=== PATIENT | female | born 1990 | race African-American/Black ===

== ENCOUNTER 2021-06-16 14:12 | Outpatient (CLI) | payer BC, SELFPAY ==
--- NOTE | ~2021-06-16 | US_ITS ---
EXAMINATION: US pelvic complete w TV DATE: 06/16/2021 15:37 INDICATION: Pelvic and perineal pain. Comparison:No prior studies for comparison. TECHNIQUE: Multiple transabdominal and endovaginal sonographic images of the pelvis performed. FINDINGS: The uterus measures 9.1 x 5.9 x 4.3 cm. The endometrial complex measures 11 mm. The right ovary measures 4.4 x 2.9 x 3.3 cm and the left ovary measures 2.1 x 1.6 x 2.1 cm. There is a right ovarian cyst measuring 3.7 cm. There are small follicles in each ovary. Normal doppler signal in both ovaries. There is no free fluid in the pelvis. There are no abnormal masses seen on either side. IMPRESSION: 1. Right ovarian cyst measuring 3.7 cm. Reviewed, dictated and finalized at location A. LITATION WORKER
== END 2021-06-16 14:13 | disposition home or self-care (01) ==
PROVIDERS: PCP Internal Medicine; Visit Provider Obstetrics & Gynecology
DX: R10.2 Pelvic and perineal pain (principal); N83.201 Unspecified ovarian cyst, right side
CPT/HCPCS: 76830; 76856

== ENCOUNTER 2021-08-14 10:47 | Outpatient (CLI) | payer BC, SELFPAY ==
--- NOTE | ~2021-08-14 | US_ITS ---
EXAMINATION: US pelvic complete w TV DATE: 08/14/2021 11:18 INDICATION: Unspecified ovarian cyst, unspecified site. TECHNIQUE: Multiple transabdominal and transvaginal sonographic images of the pelvis were obtained. COMPARISON: Ultrasound 06/16/2021 FINDINGS: TRANSABDOMINAL ULTRASOUND: The uterus measures 7.8 x 4.2 x 5.2 cm. There is no free fluid in the pelvis. TRANSVAGINAL ULTRASOUND: The endometrial complex measures 6 mm in thickness. The right ovary measures 2.9 x 1.6 x 1.4 cm. The left ovary measures 4.2 x 4.1 x 3.4 cm. There is a 3.6 cm cyst in left ovary. There is normal vascula r flow in the ovaries. IMPRESSION: 1. 3.6 cm cyst in left ovary, likely a follicular cyst. Reviewed, dictated and finalized at location E. L ENGINEER
== END 2021-08-14 10:48 | disposition home or self-care (01) ==
LOC: ANHIMG 10:50
PROVIDERS: PCP Internal Medicine; Visit Provider Obstetrics & Gynecology
DX: N83.202 Unspecified ovarian cyst, left side (principal)
CPT/HCPCS: 76830; 76856

== ENCOUNTER 2021-09-16 13:15 | Outpatient (RCR) | payer BC, MEDICAID, SELFPAY ==
--- NOTE | 2021-07-15 09:58 | PTOPEVAL ---
PHYSICAL THERAPY EVALUATION AND PLAN OF CARE Thank you for referring Brunilda Verduzco to [facility][Note 3].? The patient is scheduled to be seen for therapy? 1x/week for 5 weeks. Please review, sign, date and return this plan of care HAYLEY. I agree with and certify that the following plan of care is medically necessary. Referring Physician Date Attending Provider: René Becker MD Evaluation Diagnosis pelvic and perineal pain ( dysparunia) Onset chronic Subjective Information Does have pelvic floor pain Query Text:As Reported By Patient/ and pain with sex. Pain with Family sex has been occuring since she has been with her - since 18 years old. 4 term pregnancies, all vaginal deliveries. States that she does not really have leakage of urine and she does not seem to have urinary frequency. States she will usually only void during the day about 3-4 times a day. She does not get up in the night to go to the bathroom but first thing in the morning there is a lot of pain from the fullness of the bladder - despite the fullness of the bladder she feels like she has to lean forward or push out the urine because otherwise the stream is so weak. States that her doctor mentioned that her bladder is lower than normal. States that her doctor did some palpatory testing and there was areas of pelvic floor weakness and some areas of tenderness. perineal pain with sex: states that it has significantly worsened with time. Does note that she started working out again and there has been a decrease in the pain with sex. States that during her period and while ovulating she has severe pain (not burning) and that when she is ovulating
--- NOTE | 2021-07-22 17:39 | PCPTNOTE ---
Patient called & cancelled scheduled appointment for 07/23/21 because her kids have the flu.
--- NOTE | 2021-07-29 16:41 | PCPTNOTE ---
Patient did not show up for scheduled appointment this date.
--- NOTE | 2021-08-06 15:54 | PCPTNOTE ---
Patient called at 3:12 to state that she has not left her house yet and it would be at least another 20minutes before she was able to arrive; therefore, cancelled the appt.
--- NOTE | 2021-08-14 08:30 | PTOPEVAL ---
PHYSICAL THERAPY PROGRESS REPORT Thank you for referring Brunilda Verduzco to [facility].? The patient will follow up in 2 weeks and we will continue. Please review, sign, date and return this plan of care HAYLEY. I agree with and certify that the following plan of care is medically necessary. 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 She has been working on her [employer] and feels like she is doing well with that. She does still feel like she has to push the urine out or she will be sitting there all day. We discussed taking the opportunity to slow down and allow herself to relax while on the toilet and allow the pelvic floor to relax to allow the urine to flow well. We discussed that the flow of urine should be a good stream but easy and not like a waterfall. Self Report Self Report Pain Level 0 Pain Score Pain Score 0: Self Report Lower Extremity Muscle Strength Testing Hip Strength Left Hip Flexion Strength 5 Normal Hip Extension Strength 4 Good Hip Abduction Strength 4 Good Hip Medial Rotation Strength 4 Good Hip Lateral Rotation Strength 4 Good Right Hip Flexion Strength 5 Normal Hip Extension Strength 4+ Good + Hip Abduction Strength 4+ Good + Hip Medial Rotation Strength 4 Good Hip Lateral Rotation Strength 4 Good Pelvic Health Therapy Pelvic Health Exercise Relaxation Technique meditation techniques to relax pelvic floor prior to initiating urination to prevent need to push the urine out. also prior to intercourse in order to decrease tension held in pelvic floor Biofeedback Use discussed the concept of biofeedback and how it can assist in red
--- NOTE | 2021-10-13 16:42 | PCPTNOTE ---
This treatment is being continued on visit number [id number]. Please see documentation on both accounts to view progress. Completed interventions, outcomes, and problems have been marked as Inactive to facilitate the copying of the Care plan routine for recurring accounts.
== END 2021-10-13 11:24 | disposition home or self-care (01) ==
LOC: ANHPT 13:15
PROVIDERS: PCP Internal Medicine; Visit Provider Obstetrics & Gynecology
DX: R10.2 Pelvic and perineal pain (principal)
CPT/HCPCS: 97110; 97112; 97140; 97162; 97530

== ENCOUNTER 2021-09-23 11:19 | Outpatient (CLI) | payer BC, SELFPAY ==
--- NOTE | ~2021-09-23 | XR_ITS ---
EXAMINATION: XR chest 2V DATE: 09/23/2021 11:56 INDICATION: Chest pain TECHNIQUE: PA and lateral views of the chest are obtained. COMPARISON: None available FINDINGS: The lungs are free of acute opacities. There is no pleural effusion or pneumothorax. The ca rdiomediastinal silhouette is normal. The visualized bones and soft tissues are unremarkable. IMPRESSION: 1. No acute cardiopulmonary abnormality. Reviewed, dictated and finalized at location B.
--- NOTE | ~2021-09-23 | US_ITS ---
US abdomen complete EXAMINATION: US Abdomen Complete INDICATION: Hepatitis. PROCEDURE: Realtime High Resolution abdomen ultrasound. COMPARISON: No prior studies for comparison FINDINGS: Gallbladder within normal limits. No gallstones, pericholecystic fluid, gallbladder wall t hickening or biliary dilatation. Common bile duct measures 5 mm. Liver echotexture within normal limits without focal mass. Pancreas within normal limits. Pancreati c tail is obscured by bowel gas. Spleen is unremarkeable. Renal echotexture is within normal limits bilaterally without hydronephrosis, contour deforming mass or renal stone. Right kidney measures 9.5 cm. Left kidney measures 9.4 cm. Visualized aspects of the aorta and IVC are within normal limits. Portal vein is patent. No sonograph ic Pino's sign indicated by the technologist. IMPRESSION: 1: Normal abdominal ultrasound. Reviewed, dictated and finalized at location A.
--- NOTE | ~2021-09-23 | CT_ITS ---
EXAMINATION: CT abdomen pelvis w con EXAM DATE: 09/23/2021 14:54 INDICATION: Abdominal pain. TECHNIQUE: Spiral CT of the abdomen and pelvis was performed following intravenous injection of 100 m L Omnipaque 350. Axial, coronal and sagittal images of the abdomen and pelvis were reviewed. The do se-length product (DLP) for this examination was 222.77 mGy-cm. The exposure was tailored according to patient size (auto mA exposure control), and iterative reconstruction (ASIR) was used as additiona l dose reduction technique. There is no prior study for comparison. FINDINGS: The liver, spleen, adrenal glands and pancreas are unremarkable. Gallbladder is unremarkab le. No biliary obstruction. Portal and splenic veins are patent. Kidneys enhance symmetrically. T here is no hydronephrosis. The uterus is unremarkable. The bladder is unremarkable. There is no retroperitoneal or pelvic lymphadenopathy. There are no findings to suggest appendicitis. The stomach and small bowel are unremarkable. There is expected amount of colonic stool. No free intraperitoneal gas. The heart is normal in size. T here are no pericardial or pleural effusions. The lung bases are unremarkable. The bones are unrema rkable. IMPRESSION: 1. No acute intra-abdominal findings. Reviewed, dictated and finalized at location G.
[2021-09-23 12:55] LABS: Basophils Percent Auto 0.6 % (0.2-1.2); Eosinophils Absolute Auto 0.1 K/mm3 (0-0.3); Eosinophils Percent Auto 1.5 % (0-4.4); Hematocrit 38.4 % (37.0-47.0); Hemoglobin 13.3 g/dL (12.0-15.0); Immature Granulocyte Absolute 0.01 K/mm3 (0.00-0.031); Immature Granulocyte Percent A 0.2 % (0-0.5); Lymphocytes Absolute Auto 2.02 K/mm3 (0.9-3.2); Lymphocytes Percent Auto 39.1 % (18.3-44.2); Mean Corpuscular HGB Conc 34.6 g/dl (32-36); Mean Corpuscular Hemoglobin 30.9 pg (26-34); Mean Corpuscular Volume 89.1 fl (80-100); Mean Platelet Volume 9.4 fl (7.4-10.4); Monocytes Absolute Auto 0.4 K/mm3 (0.1-0.6); Monocytes Percent Auto 7.5 % (2.6-8.5); Neutrophils Absolute Auto 2.6 K/mm3 (1.3-6.7); Neutrophils Percent Auto 51.1 % (45.5-73.1); Platelet Count Result 219 k/mm3 (150-375); Red Blood Count 4.31 M/mm3 (4.2-5.4); White Blood Count 5.2 K/mm3 (4.5-10.0)
[2021-09-23 13:05] LABS: Alanine Aminotransferase 646 U/L (4-35); Albumin Level 4.6 g/dL (3.5-5.1); Alkaline Phosphatase 106 U/L (38-126); Amylase 74 U/L (30-110); Anion Gap 8 mmol/L (8-16); Aspartate Amino Transferase 357 U/L (14-36); Bilirubin,Total 0.5 mg/dL (0.2-1.3); Blood Urea Nitrogen 12 mg/dL (7-17); Calcium 9.2 mg/dL (8.4-10.2); Carbon Dioxide 22 mmol/L (22-30); Chloride 108 mmol/L (98-107); Estimated Glomerular Filt Rate > 60; Glucose 83 mg/dL (65-110); Lipase 75 U/L (23-300); Potassium 3.6 mmol/L (3.4-5.0); Sodium 138 mmol/L (137-145)
== END 2021-09-23 11:20 | disposition home or self-care (01) ==
PROVIDERS: PCP Internal Medicine; Visit Provider Internal Medicine
DX: K75.9 Inflammatory liver disease, unspecified (principal); R07.9 Chest pain, unspecified; R10.9 Unspecified abdominal pain
CPT/HCPCS: 36415; 71046; 74177; 76700; 80053; 82150; 83690; 85025; Q9967

== ENCOUNTER 2021-10-02 14:41 | Outpatient (CLI) | payer BC, SELFPAY ==
[2021-10-02 15:10] LABS: Alanine Aminotransferase 62 U/L (4-35); Albumin Level 4.6 g/dL (3.5-5.1); Alkaline Phosphatase 72 U/L (38-126); Anion Gap 10 mmol/L (8-16); Aspartate Amino Transferase 30 U/L (14-36); Bilirubin,Total 0.3 mg/dL (0.2-1.3); Blood Urea Nitrogen 13 mg/dL (7-17); Calcium 9.5 mg/dL (8.4-10.2); Carbon Dioxide 24 mmol/L (22-30); Chloride 108 mmol/L (98-107); Estimated Glomerular Filt Rate > 60; Glucose 101 mg/dL (65-110); Potassium 3.7 mmol/L (3.4-5.0); Sodium 142 mmol/L (137-145)
[2021-10-02 15:22] LABS: Troponin I < 0.012 ng/mL (0.000-0.034)
[2021-10-07 10:33] LABS: CMV IgM Antibody <30.00 AU/mL (<30.00)
[2021-10-08 15:16] LABS: EBV Nuclear Ab Interpretation Past; EBV Virus Capsid Ag IgM Ab <36.00 U/mL (<36.00)
== END 2021-10-02 14:42 | disposition home or self-care (01) ==
LOC: ANHLAB 14:44
PROVIDERS: PCP Internal Medicine; Visit Provider Internal Medicine
DX: K75.9 Inflammatory liver disease, unspecified (principal)
CPT/HCPCS: 36415; 80053; 84484; 86645; 86664; 86665

== ENCOUNTER 2021-10-17 07:19 | Outpatient (RCR) | payer BC, SELFPAY ==
--- NOTE | 2021-10-13 16:42 | PCPTNOTE ---
The treatment documented on this account is a continuation of the treatment documented on visit number [id number]. Please see documentation on both accounts to view progress. The Plan of Care has been transitioned and updated within the new V#. I have addressed and agree with the discipline specific Problems, Interventions, and Goals for the current certification period. Completed interventions, outcomes, and problems have been marked as Inactive to facilitate the copying of the Care plan routine for recurring accounts.
--- NOTE | 2021-10-14 10:46 | PCPTNOTE ---
Patient did not show up for scheduled appointment this date.
--- NOTE | 2021-10-16 15:18 | PCPTNOTE ---
PHYSICAL THERAPY DISCHARGE NOTE Attending Provider: René Becker MD Patient:Brunilda Verduzco Date of :1990 Brunilda was participating in physical therapy to address pelvic pain and difficulty voiding. She participated in treatment to address relaxation techniques and voiding strategies and healthy practices. She felt good about performing pelvic floor exercises and relaxation techniques. She has not returned for any further treatments since , therefore she will be discharged at this time. Patient?s initial visit was on 10/14/2021 and had a total of 4 visits. Thank you for referring this patient to [facility]. Please review, sign, date and return this discharge summary HAYLEY. I have been updated about the patient's current status and I agree with discharge from the above service at this time. Referring Physician Date
== END 2021-10-17 07:20 | disposition home or self-care (01) ==
LOC: ANHPT 07:19
PROVIDERS: PCP Internal Medicine; Visit Provider Obstetrics & Gynecology
DX: R10.2 Pelvic and perineal pain (principal)
CPT/HCPCS: 99199

== ENCOUNTER 2021-11-11 16:43 | Outpatient (CLI) | payer BC, SELFPAY ==
[2021-11-11 17:24] LABS: Alanine Aminotransferase 14 U/L (6-35); Albumin Level 4.4 g/dL (3.5-5.1); Alkaline Phosphatase 61 U/L (38-126); Anion Gap 8 mmol/L (8-16); Aspartate Amino Transferase 29 U/L (14-36); Bilirubin,Total < 0.1 mg/dL (0.2-1.3); Blood Urea Nitrogen 17 mg/dL (7-17); Calcium 9.1 mg/dL (8.4-10.2); Carbon Dioxide 22 mmol/L (22-30); Chloride 110 mmol/L (98-107); Estimated Glomerular Filt Rate > 60; Glucose 95 mg/dL (65-110); Potassium 3.7 mmol/L (3.4-5.0); Sodium 140 mmol/L (137-145)
== END 2021-11-11 16:44 | disposition home or self-care (01) ==
LOC: ANHLAB 16:45
PROVIDERS: PCP Internal Medicine; Visit Provider Internal Medicine
DX: R79.89 Other specified abnormal findings of blood chemistry (principal)
CPT/HCPCS: 36415; 80053

== ENCOUNTER 2021-11-24 13:47 | Outpatient (CLI) | payer BC, SELFPAY ==
[2021-11-24 14:25] LABS: Basophils Percent Auto 0.8 % (0.2-1.2); Eosinophils Absolute Auto 0.2 K/mm3 (0-0.3); Eosinophils Percent Auto 2.9 % (0-4.4); Hematocrit 37.8 % (37.0-47.0); Hemoglobin 12.7 g/dL (12.0-15.0); Immature Granulocyte Absolute 0.01 K/mm3 (0.00-0.031); Immature Granulocyte Percent A 0.2 % (0-0.5); Lymphocytes Absolute Auto 2.08 K/mm3 (0.9-3.2); Lymphocytes Percent Auto 40.8 % (18.3-44.2); Mean Corpuscular HGB Conc 33.6 g/dl (32-36); Mean Corpuscular Hemoglobin 29.8 pg (26-34); Mean Corpuscular Volume 88.7 fl (80-100); Mean Platelet Volume 9.6 fl (7.4-10.4); Monocytes Absolute Auto 0.4 K/mm3 (0.1-0.6); Monocytes Percent Auto 7.1 % (2.6-8.5); Neutrophils Absolute Auto 2.5 K/mm3 (1.3-6.7); Neutrophils Percent Auto 48.2 % (45.5-73.1); Platelet Count Result 211 k/mm3 (150-375); Red Blood Count 4.26 M/mm3 (4.2-5.4); Red Cell Distribution Width 12.8 % (11.5-14.5); White Blood Count 5.1 K/mm3 (4.5-10.0)
[2021-11-24 14:40] LABS: CRP < 0.5 mg/dL (<1.0)
[2021-11-24 14:41] LABS: Rheumatoid Factor < 8.6 IU/ML (<12)
[2021-11-24 15:19] LABS: Erythrocyte Sedimentation Rate 13 mm/hr (0-20)
== END 2021-11-24 13:48 | disposition home or self-care (01) ==
LOC: ANHLAB 13:50
PROVIDERS: PCP Internal Medicine; Visit Provider Internal Medicine
DX: M25.50 Pain in unspecified joint (principal); L08.9 Local infection of the skin and subcutaneous tissue, unspecified; S01.339A Puncture wound without foreign body of unspecified ear, initial encounter; X58.XXXA Exposure to other specified factors, initial encounter
CPT/HCPCS: 36415; 85025; 85652; 86038; 86140; 86430

== ENCOUNTER 2021-12-26 16:02 | Outpatient (CLI) | payer BC, SELFPAY ==
[2021-12-26 16:33] LABS: Alanine Aminotransferase 13 U/L (6-35); Albumin Level 4.2 g/dL (3.5-5.1); Alkaline Phosphatase 50 U/L (38-126); Anion Gap 6 mmol/L (8-16); Aspartate Amino Transferase 258 U/L (14-36); Bilirubin,Total 0.1 mg/dL (0.2-1.3); Blood Urea Nitrogen 14 mg/dL (7-17); Calcium 8.9 mg/dL (8.4-10.2); Carbon Dioxide 25 mmol/L (22-30); Chloride 109 mmol/L (98-107); Estimated Glomerular Filt Rate > 60; Glucose 94 mg/dL (65-110); Potassium 3.9 mmol/L (3.4-5.0); Sodium 140 mmol/L (137-145)
== END 2021-12-26 16:03 | disposition home or self-care (01) ==
LOC: ANHLAB 16:03
PROVIDERS: PCP Internal Medicine; Visit Provider Internal Medicine
DX: Z79.899 Other long term (current) drug therapy (principal)
CPT/HCPCS: 36415; 80053

== ENCOUNTER 2022-03-24 10:57 | Outpatient (CLI) | payer BC, SELFPAY ==
[2022-03-24 12:33] LABS: Alanine Aminotransferase 14 U/L (6-35); Albumin Level 4.8 g/dL (3.5-5.1); Alkaline Phosphatase 63 U/L (38-126); Aspartate Amino Transferase 29 U/L (14-36); Bilirubin,Total 0.3 mg/dL (0.2-1.3)
== END 2022-03-24 10:58 | disposition home or self-care (01) ==
PROVIDERS: PCP Internal Medicine; Visit Provider Internal Medicine
DX: R74.8 Abnormal levels of other serum enzymes (principal)
CPT/HCPCS: 36415; 80076

== ENCOUNTER 2023-03-17 08:19 | Outpatient (CLI) | payer MEDICAID, SELFPAY ==
[2023-03-17 09:50] LABS: Alanine Aminotransferase 14 U/L (6-35); Albumin Level 4.4 g/dL (3.5-5.1); Alkaline Phosphatase 55 U/L (38-126); Anion Gap 7 mmol/L (8-16); Aspartate Amino Transferase 34 U/L (14-36); Bilirubin,Total 0.2 mg/dL (0.2-1.3); Blood Urea Nitrogen 10 mg/dL (7-17); Calcium 9.3 mg/dL (8.4-10.2); Carbon Dioxide 30 mmol/L (22-30); Chloride 103 mmol/L (98-107); Cholesterol 295 mg/dL (0-200); Estimated Glomerular Filt Rate > 60; Glucose 96 mg/dL (65-110); HDL Direct 61 mg/dL; Sodium 140 mmol/L (137-145); Triglycerides 89 mg/dL (<150)
[2023-03-17 10:01] LABS: LDL Cholesterol Direct 158 mg/dL
== END 2023-03-17 08:20 | disposition home or self-care (01) ==
PROVIDERS: PCP Internal Medicine
DX: E66.3 Overweight (principal); Z68.28 Body mass index [BMI] 28.0-28.9, adult
CPT/HCPCS: 36415; 80053; 80061

== ENCOUNTER 2023-08-02 02:46 | Emergency (ER) | payer MEDICAID, SELFPAY ==
[2023-08-02 03:15] VITALS: BP 123/73; PULSE 74; RESP 20; TEMP 38; O2SAT 98
--- NOTE | 2023-08-02 04:23 | PC.NURSE ---
Patient comes to desk to inform this RN that I feel really hot, almost like I want to throw up. This RN rechecked patients temp and was 99.0 orally. Patient tearful. Patient ambulated back to the waiting room with steady gait.
[2023-08-02 04:24] VITALS: TEMP 37.2
[2023-08-02 06:58] VITALS: BP 112/77; PULSE 88; RESP 16; O2SAT 98
[2023-08-02 07:15] LABS: Basophils Percent Auto 0.7 % (0.2-1.2); Hematocrit 36.6 % (37.0-47.0); Hemoglobin 12.1 g/dL (12.0-15.0); Lymphocytes Absolute Auto 1.05 K/mm3 (0.9-3.2); Lymphocytes Percent Auto 34.3 % (18.3-44.2); Mean Corpuscular HGB Conc 33.1 g/dl (32-36); Mean Corpuscular Hemoglobin 29.2 pg (26-34); Mean Corpuscular Volume 88.4 fl (80-100); Mean Platelet Volume 9.7 fl (7.4-10.4); Monocytes Absolute Auto 0.5 K/mm3 (0.1-0.6); Monocytes Percent Auto 14.7 % (2.6-8.5); Neutrophils Absolute Auto 1.5 K/mm3 (1.3-6.7); Neutrophils Percent Auto 50.3 % (45.5-73.1); Platelet Count Result 164 k/mm3 (150-375); Red Blood Count 4.14 M/mm3 (4.2-5.4); White Blood Count 3.1 K/mm3 (4.5-10.0)
[2023-08-02 07:24] LABS: Alanine Aminotransferase 11 U/L (6-35); Albumin Level 4.4 g/dL (3.5-5.1); Alkaline Phosphatase 65 U/L (38-126); Anion Gap 9 mmol/L (8-16); Aspartate Amino Transferase 31 U/L (14-36); Bilirubin,Total 0.3 mg/dL (0.2-1.3); Blood Urea Nitrogen 9 mg/dL (7-17); Calcium 9.3 mg/dL (8.4-10.2); Carbon Dioxide 25 mmol/L (22-30); Chloride 104 mmol/L (98-107); Estimated CRCL calculation 82 ml/min; Estimated Glomerular Filt Rate > 60; Glucose 87 mg/dL (65-110); Potassium 4.1 mmol/L (3.4-5.0); Sodium 138 mmol/L (137-145)
[2023-08-02 07:32] VITALS: BP 107/70; PULSE 74; RESP 16; O2SAT 100
[2023-08-02 08:03] LABS: Influenza A QL RT-PCR Positive (Negative); Influenza B QL RT-PCR Negative (Negative); RSV RNA, RT-PCR Negative (Negative); SARS-CoV-2 RNA PCR Negative (Negative)
--- NOTE | 2023-08-02 08:08 | ED.GENADULT ---
HPI - General Adult General Chief complaint: Headache Stated complaint: Migraine Time Seen by Provider: 08/02/23 06:54 History of Present Illness HPI narrative: 32-year-old female history of migraine presented to the emergency department for evaluation of a migraine that started approximately 4 days ago. Patient states that this migraine started as her typical migraines but is not yet responded to medications for treatment. Patient does report headache with light sensitivity. Related Data Home Medications Medication Instructions Recorded Confirmed lamotrigine 25 mg tablet 75 mg PO DAILY 09/16/21 02/23/23 fluoxetine 10 mg capsule 10 mg PO DAILY 01/27/23 02/23/23 quetiapine 25 mg tablet (Seroquel) 25 mg PO QHS 01/27/23 02/23/23 hydroxyzine HCl 10 mg tablet 10 mg PO BID PRN 02/23/23 02/23/23 Allergies Allergy/AdvReac Type Severity Reaction Status Date / Time lactose Allergy Gastrointestinal Verified 08/02/23 06:56 Upset Review of Systems Review of Systems: All systems reviewed & are unremarkable except as noted in HPI and below PMFSH Past Medical History Medical History Allergies Anxiety Headache Surgical History Surgical History Status post surgical removal of ganglion cyst Family History Family History Mother Asthma History of cancer Diabetes mellitus Hypertension Depression Heart disease Sibling Hypertension Depression Grandparent Alcoholism Hypertension Depression Thyroid disorder Social History Social History Smoking status: Never smoker Alcohol intake: current Substance use: current Substance use type: marijuana Lack of Transportation: No Lack of Food: Never True Current Housing: I Have Housing Concerned About Future Housing: No Difficulty Paying Gas/Electric Bills: No Difficulty Paying for Meds: No Currently Unemployed: YES Education: Trade/Vocational Certificate Difficulty w/ Childcare or Family Care: No Living arrangements: with family Occupation/Education: unemployed Gender identity (if verbalized by the patient): Female Exam Narrative: APPEARANCE: Well appearing, no pain, no distress, well-nourished. HEAD: normocephalic, atraumatic. EYES: PERRLA/EOMI, conjunctivae clear. NOSE: Normal no drainage EARS:TMS clear with good light reflex. THROAT: Pharynx clear, no exudate. NECK: Supple. No adenopathy, no masses. RESPIRATORY: Airway patent, respirations nonlabored. Clear to auscultation bilaterally, no rales, rhonchi, wheezing. CARDIOVASCULAR: Regular rate and rhythm without murmurs rubs or gallops. ABDOMINAL: Soft, nontender, nondistended, normal bowel sounds MUSCULOSKELETAL: Moves all extremities. Strength/ROM intact, No edema, No calf tenderness. NEURO: Alert. Cranial nerves II through XII intact. Grossly intact SKIN: Warm, dry. Normal Color Course Course Emergency Course: 32-year-old female presenting to the ED for evaluation of migraine. Patient has a normal neuro exam with no deficit. Patient is afebrile with no leukocytosis and a stable hemoglobin with no abnormalities on her CMP. Patient did test positive for influenza A. Patient reports she does feel improved with migraine treatment and is comfortable with plan for discharge home. Vital Signs Vital signs: Vital Signs Temperature 100.4 F H 08/02/23 03:15 Pulse Rate 74 08/02/23 03:15 Respiratory Rate 20 08/02/23 03:15 Blood Pressure 123/73 08/02/23 03:15 Pulse Oximetry 98 08/02/23 03:15 Oxygen Delivery Room Air 08/02/23 03:15 Temperature 99.0 F 08/02/23 04:24 Pulse Rate 86 08/02/23 09:49 Respiratory Rate 16 08/02/23 09:49 Blood Pressure 130/76 08/02/23 09:49 Pulse Oximetry 98 08/02/23 09:49 Oxygen Deliver
[2023-08-02] MEDS: SODIUM CHLORIDE 0.9% IV 1,000 ML 999 ML IV CONT (08:19)
[2023-08-02] MEDS: diphenhydrAMINE HCl INJ 50 MG/ML VIAL 25 MG IV PUSH (08:20)
[2023-08-02] MEDS: KETOROLAC 15 MG/ML VIAL (*BKC) IV PUSH (08:21)
[2023-08-02] MEDS: PROCHLORPERAZINE EDISYLATE 10 MG/2 ML VIAL IV PUSH (08:23)
[2023-08-02 08:26] VITALS: BP 103/70; PULSE 72; RESP 16; O2SAT 100
[2023-08-02 09:49] VITALS: BP 130/76; PULSE 86; RESP 16; O2SAT 98
== END 2023-08-02 09:50 | disposition home or self-care (01) ==
PROVIDERS: Emergency Provider Emergency Medicine; PCP Family Medicine
DX: J10.1 Influenza due to other identified influenza virus with other respiratory manifestations (principal); G43.909 Migraine, unspecified, not intractable, without status migrainosus; Z20.822 Contact with and (suspected) exposure to COVID-19
CPT/HCPCS: 36415; 80053; 85025; 87637; 96361; 96374; 96375; 99284; J0780; J1200; J1885; J7030